=== PATIENT | male | born 1985 | race American Indian/Alaskan Native ===

== ENCOUNTER 2019-04-21 19:54 | Observation (INO) | payer OTHER ==
[~2019-04-21] VITALS: Ht 175.3 cm; Wt 97.6 kg
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
--- NOTE | 2019-04-22 00:34 | NUR ---
ADMISSION ASSESSMENT COMPLETE. PT ALERT AND ORIENTED. RATES PAIN 8/10. PRN MORPHINE ADMINSTERED. PT DENIES NAUSEA. REPORTS SLIGHT SOB. O2 PLACED AT 2LPM VIA NC. HOB 20, ALL PT COULD TOLERATE AT CURRENT PAIN LEVEL. LUNG SOUNDS DIM IN BILATERAL BASES. ABRASIONS TO L BACK COVERED. ABRASION TO L ABD, L EAR, L EYE, AND L FOREHEAD FAMILY CONSUMER SCIENCE TEACHER. PT PROVIDED WITH ICE WATER. ORIENTED TO ROOM AND POC FOR THIS SHIFT. PT'S SISTER WILL STAY THE NIGHT WITH PT. LINEN PACK FOR COUCH PROVIDED. PT DENIES FURTHER NEEDS AT THIS TIME. CALL LIGHT WITHIN REACH.
--- NOTE | 2019-04-22 01:10 | NUR ---
BOLUS FINISHED, MAINTENANCE FLUIDS HUNG. PT RESTING IN BED WITH EYES CLOSED. RESPIRATIONS EVEN, UNLABORED. O2 IN PLACE APPROPRIATELY. SAO2 99%. PT'S SISTER AT BEDSIDE IN CHAIR USING CELL PHONE. NEEDS DENIED AT THIS TIME. CALL LIGHT IN REACH OF PT. PT'S SISTER ENCOURAGED TO USE CALL LIGHT IF NEEDS ARISE WELL.
--- NOTE | 2019-04-22 02:38 | NUR ---
PT UTILIZES CALL LIGHT, STATES HE NEEDS REPOSITIONED. PT PULLED UP IN BED, PROPPED WITH PILLOWS. PT STATES THAT HE IS MORE COMFORTABLE NOW. RATES PAIN 6-7/10. STATES THIS IS TOLERABLE. PT REQUESTS URINAL BE PLACED, LEFT IN PLACE FOR PT TO ATTEMPT TO VOID. PT DENIES OTHER NEEDS AT THIS TIME. PT'S SISTER SLEEPING ON COUCH. CALL LIGHT IN REACH. ICE WATER REFILLED.
--- NOTE | 2019-04-22 06:05 | NUR ---
PT ASSESSMENT COMPLETE. PT RATING PAIN 5/10 TO RIBS AND L COLLARBONE. PRN MORPHINE ADMINISTERED. PT DENIES SOB OR NAUSEA. O2 @ 2LPM SAO2 100%. LUNG SOUNDS DIMINISHED ON RLL, DIM TO ABDSENT IN LLL. MD NOTIFIED OF FINDING. XRAY ORDER CHANGED TO STAT PER MD, IMAGING NOTIFIED. CMS INTACT TO ALL EXTREMITIES. IV FLUIDS INFUSING WNL. PT REPOSITIONED, TOLERATED OK. PT'S SISTER RESTING AT BEDSIDE. ICE WATER REFILLED. CALL LIGHT WITHIN REACH.
--- NOTE | 2019-04-22 06:24 | NUR ---
IMAGING IN ROOM TO TAKE PT TO XRAY. PT ASSITED WITH 1PA TO TRANSFER TO , PAINFUL, TOLERATED OK.
--- NOTE | 2019-04-22 07:42 | NUR ---
REPORT RECEIVED FROM KRISTOFER CONWAY. PT AWAKE IN BED. HOB ELEVATE HIGH HE CAN TOLERATE. 2LNC. TRANSFERRED TO WHEELCHAIR FOR XRAY WITH 1 PA. CLEAR LIQ TRAY AT BEDSIDE.
--- NOTE | 2019-04-22 09:09 | NUR ---
ADMINISTERED MORNING MEDS AND IBP FOR PAIN CONTROL. PT ABLE TO SWALLOW PILL WO DIFF. FAMILY IN ROOM. SISI TRAUMA COORD. IN ROOM. RATES PAIN 6/10 IN RIBS. CMS INTACT. ABD TENDER IN RIGHT LOWER QUAD AND LEFT UPPER QUAD. RR EVEN ADN UNLABORED.
--- NOTE | 2019-04-22 10:21 | NUR ---
PT GIVEN IS AND INSTRUCTED ONUSE. ACTUALLY DID BETTER THAN ANTICIPATED. LUNGS EXTREMELY HARD TO HEAR.
--- NOTE | 2019-04-22 10:28 | NUR ---
PATIENT IN BED RESTING. FRESH WATER GIVEN. CALL LIGHT IN REACH. NO FURTHER NEEDS AT THIS TIME.
--- NOTE | 2019-04-22 11:09 | NUR ---
PT ASSISTED TO RESTROOM. VOIDED IN TOILET AND FLUSHED BUT PT STATED IT WS A GOOD AMT. PLACED HAT FOR NEXT TIME. NOW SITTING UP IN CHAIR WITH CALL LIGHT IN REACH.
--- NOTE | 2019-04-22 13:20 | NUR ---
ADMINISTERED PERCOCET 1 TAB FOR 8\10 PAIN IN THE RIBS. PT DENIES FURTHER CONCERNS.
--- NOTE | 2019-04-22 13:27 | NUR ---
PATIENT UP FROM CHAIR TO BED, SBA. NO VOID AND PATIENT ASKING FOR PAIN MEDS, RN NOTIFIED. SISTER IN ROOM. CALL LIGHT IN REACH. NO FURTHER NEEDS AT THIS TIME.
--- NOTE | 2019-04-22 17:18 | NUR ---
PT RESTING IN BED. DENIES NEEDS ATT. REMAINS ON 2LNC. FAMILY IN ROOM.
--- NOTE | 2019-04-22 17:23 | NUR ---
PT PAIN WELL CONTROLLED WITH TYLENOL AND 1 TAB PERCO. RIBS ON BOTH SIDES VERY PAINFUL. REMAINS ON 2LNC FOR SMALL PNEUMO. FAMILY IN ROOM. USING IS INSTRUCTED. MULTIPLE CUTS AND ABRASIONS WELL CLOSED AND WNL.
--- NOTE | 2019-04-22 18:05 | NUR ---
PT WALKED SEVERAL LAPS IN HALLWAY WITH CHARGE. 2LNC REMAINS ON.
--- NOTE | 2019-04-22 18:38 | NUR ---
PATIENT SITTING ON SIDE OF BED. CALL LIGHT IN REACH. NO FURTHER NEEDS AT THIS TIME.
--- NOTE | 2019-04-22 19:30 | NUR ---
BEDSIDE REPORT RECEIVED FROM OFFGOING RN. PT RESTING IN BED, VISITORS AT BEDSIDE. PT DENIES NEEDS AT THIS TIME. CALL LIGHT IN REACH.
--- NOTE | 2019-04-22 22:49 | NUR ---
PT NOTIFIED BOATWRIGHT THAT PAIN WAS INCREASED. PRN PAIN MEDCIATION ADMINISTERED FOR 8/10 PAIN TO RIBS AND L SHOULDER. PT DENIES NAUSEA OR SOB. O2 IN PLACE VIA NC @ 2LPM. LUNG SOUNDS DIMINISHED IN BILATERAL BASES. SCATTERED ABRASIONS PRESENT. PT DENIES NEEDS AT THIS TIME. POC FOR THIS THIS DISCUSSED WITH PT. UNDERSTANDING STATED. CALL LIGHT IN REACH.
--- NOTE | 2019-04-23 00:50 | NUR ---
PT RESTING IN BED WITH EYES CLOSED, WAKES EASILY WHEN LOUVER MORTISER OPERATOR ENTERS THE ROOM. PT STATES THAT PAIN IS "MUCH BETTER". hE IS ABLE TO RAISE BILATERAL ARMS ABOVE HEAD AND RATES PAIN 6/10. PT DENIES NEEDS AT THIS TIME. CALL LIGHT IN REACH.
--- NOTE | 2019-04-23 03:31 | NUR ---
PT RESTING IN BED WITH EYES CLOSED. RESPIRATIONS EVEN AND UNLABORED. O2 IN PLACE @ 2LPM. PT APPEARS TO BE SLEEPING. DOES NOT WAKE WHILE SUPERVISOR VARNISH IN DOORWAY. CALL LIGHT IN REACH.
--- NOTE | 2019-04-23 05:54 | NUR ---
PT ASSESSMENT COMPLETE. PT RATES PAIN 06/05. PRN PAIN MEDCIATION ADMINISTERED. PT DENIES NAUSEA OR SOB. O2 @ 2LPM. LUNG SOUNDS DIM IN BILATERAL BASES. CMS INTACT TO ALL EXTREMITIES. PT DENIES NEEDS AT THIS TIME. CALL LIGHT IN REACH.
--- NOTE | 2019-04-23 07:32 | NUR ---
PT RESTING IN BED ALERT AND ORIENTED BEDSIDE REPORT.. PT ALERTED TO IMAGING COMING TO TRANSPORT PT TO CXR.
--- NOTE | 2019-04-23 08:02 | NUR ---
PATIENT IN CHAIR WATCHING TV. CALL LIGHT IN REACH. NO FURTHER NEEDS AT THIS TIME.
--- NOTE | 2019-04-23 09:11 | NUR ---
CALLED DR DIAZ OFFICE REGARDING CONSULT TODAY. SPOKE WITH NALLELY. SHE STATED HE WOULD PROBABLY BE OVER AROUND LUNCH. PLACED OFFICIAL CONSULT IN COMPUTER.
--- NOTE | 2019-04-23 09:13 | NUR ---
SHOWER...PT UP IN SHOWER AT THIS TIME, DRESSING FROM LEFT POST SHOULER REMOVED FOR SHOWER.
--- NOTE | 2019-04-23 10:09 | NUR ---
PATIENT DONE WITH SHOWER AND NOW IN CHAIR, SISTER IN ROOM. FRESH WATER GIVEN. CALL LIGHT IN REACH. NO FURTHER NEEDS AT THIS TIME.
--- NOTE | 2019-04-23 10:29 | NUR ---
PT UP AMBULATING IN HALLS AT THIS TIME WITH PORTABLE O2 AT 2L N.C. PER 'S ORDER. PT TOLERATING ACTIVITY VERY WELL INDEPENDENTLY.
--- NOTE | 2019-04-23 10:58 | NUR ---
BED LINENS CHANGED WHILE PT UP WALKING
--- NOTE | 2019-04-23 11:16 | NUR ---
updated on pt current pain, advised to give tylenol and motrin for now then percocet when available is pain not relieved.
--- NOTE | 2019-04-23 13:16 | NUR ---
PT UP AMBULATING IN ROOM, LUNCH ORDERED AFTER PT REPORTED TO NURSES STATION THAT HE HAD NOT HAD LUNCH. PT REPORTS PAIN IS TOLERABLE AT THIS TIME.
--- NOTE | 2019-04-23 17:36 | NUR ---
PT HAS BEEN UP AMBULATING REGULAR, TOELRATING DIET WELL, GIVEN MOTRIN/TYLENOL ONCE AND PERCOCET ONCE THIS SHIFT. HE HAS SHOWERED DRESSINGS CHANGED ON LEFT POSTERIOR SHOULDER. HE HAS BEEN 2L O2 THIS SHIFT PER ORDER. HAS CONSULTED THIS LATE AFTERNOON FOR FX CLAVICAL, HE ORDERED ICE TO SITE AND SLING TO LEFT ARM WHEN UP OUT OF BED.
--- NOTE | 2019-04-23 19:00 | NUR ---
SHIFT REPORT RECEIVED. MD IN ROOM. PATIENT TO STAY THE NIGHT AND DC IN THE MORNING. PATIENT DENIES ANY NEEDS.
[2019-04-23] MEDS ORDERED: OXYCODON-ACETA1 EAC2 PO (19:34)
[2019-04-23] MEDS ORDERED: IBUPROFEN600 MG PO (19:34)
[2019-04-23] MEDS ORDERED: TYLENOL325 MG PO (19:34)
[2019-04-23] MEDS ORDERED: FAMOTIDINE20 MG PO (19:35)
--- NOTE | 2019-04-23 20:20 | NUR ---
ICE PACK PROVIDED.
--- NOTE | 2019-04-23 20:30 | NUR ---
EVEING MEDS PROVIDED PER ORDER. PATIENT REPORTS 7/10 PAIN AND STATES HE IS "DOING OKAY". PRN MOTRIN AND TYLENOL PROVIDED. SWING PLACED ON RIGHT ARM AT 90 DEGREE ANGLE PER ORDERS. ABRASIONS NOTED, DRESSING INTACT ON LEFT SHOULDER AND BACK. LUNG SOUNDS ARE CLEAR, ENCOURAGED IS USE. PATIENT REPORTS POOR APPETITE BUT ACCEPTS OFFER OF SANDWICH BOX FOR A LATE DINNER. NO OTHER NEEDS AT THIS TIME.
--- NOTE | 2019-04-23 22:45 | NUR ---
PATIENT APPEARS TO BE SLEEPING SOUNDLY. WOKE EASILY TO VOICE. DENIES ANY NEEDS. PAIN WELL CONTROLED.
--- NOTE | 2019-04-24 01:00 | NUR ---
PATIENT APPEARS TO BE SLEEPING SOUNDLY. RR 20.
--- NOTE | 2019-04-24 04:15 | NUR ---
PATIENT AAPPEARS TO BE SLEEPING SOUNDLY. WOKE EASILY TO VOICE. DENIES ANY NEEDS. REPORTS PAIN 4/10, DENIES NEED FOR PRN PAIN MEDS. ICE PACK IN PLACE.
--- NOTE | 2019-04-24 05:50 | NUR ---
PATIENT APPEARED TO BE SLEEPING SOUNDLY. WOKE EASILY TO VOICE. RATES PAIN 8/10 AND APPEARS UNCOMFORTABLE. PRN MOTRIN AND PERCOCET PROVIDED. OIL WELL LOGGING ENGINEER PROVIDED FRESH ICE PACKS. NO OTHER NEEDS AT THIS TIME.
--- NOTE | 2019-04-24 06:27 | NUR ---
PATIENT SLEPT MOST OF THE SHIFT. GOOD ORAL INTAKE. PAIN CONTORLLED WITH PRN PERCOSET X1 AND MOTRIN X2. ICE TO EFFECTED AREAS. LEFT ARM IN SLING. ABRAISONS ON BACK COVERED, MINIMAL DRAINAGE. PATIENT INDEPENDENT IN THE ROOM. ENCOURAGE COUGH AND DEEP BREATHING. LUNGS ARE CLEAR, DIMINISHED IN LOWER LEFT.
--- NOTE | 2019-04-24 07:07 | NUR ---
RECIEVED BEDSIDE REPORT FROM KRISTOFER ALEXIS. PT IN BED, AWAKE BUT DROWSY. REPORTS PAIN IS NOW WELL CONTROLLED. HAS ICE PACK TO LEFT CLAVICLE AREA.
--- NOTE | 2019-04-24 09:07 | NUR ---
PT REPORTED 7/10 PAIN TO BILATERAL RIBS AND TO LEFT CLAVICLE. GAVE PERCOCET 1 TAB PO PRN. PT SITTING UP IN RECLINER. EDUCATION GIVEN TO PT REGARDING NEED TO DEEP BREATH AND COUGH, AND TO USE INSENTIVE SPIROMETER. PT VERBALIZED UNDERSTANDING.
--- NOTE | 2019-04-24 11:02 | NUR ---
PATIENT GOT UP TO THE CHAIR FOR BREAKFAST. HE IS BACK IN BED. CALL LIGHT IN REACH. NO FURTER NEEDS AT THIS TIME. WATER REFRESHED.
--- NOTE | 2019-04-24 11:28 | NUR ---
REVIEWED DISCHARGE INSTRUCTIONS AND EDUCATION WITH PT. QUESTIONS ASKED AND ANSWERED. PT VERBALIZED UNDERSTANDING. IV D/C'D WNL.
--- NOTE | 2019-04-24 13:42 | NUR ---
PT RESTING IN BED WITH SWEATPANTS AND GOWN ON. PT HAS ICE PACK ON L CLAVICLE, ALONG WITH SLING ON L ARM. PT QUIET BUT RESPONSIVE-SAID HE UNDERSTOOD HIS POC AND WAS WAITING FOR HIS MOTHER TO TAKE HIM HOME FOLLOWING DC. I EXTENDED A BLESSING, WILL FOLLOW NEEDED
== END 2019-04-24 12:15 | disposition home or self-care (01) ==
LOC: ED 19:54 → MS 19:56
PROVIDERS: ADMIT Surgery
DX: S27.0XXA Traumatic pneumothorax, initial encounter (principal); S42.022A Displaced fracture of shaft of left clavicle, initial encounter for closed fracture; S22.42XA Multiple fractures of ribs, left side, initial encounter for closed fracture; S20.312A Abrasion of left front wall of thorax, initial encounter; F10.129 Alcohol abuse with intoxication, unspecified; R74.8 Abnormal levels of other serum enzymes; Y90.6 Blood alcohol level of 120-199 mg/100 ml; V48.5XXA Car driver injured in noncollision transport accident in traffic accident, initial encounter
CPT/HCPCS: 36415; 70450; 71045; 71046; 71260; 72125; 73030; 74177; 80053; 82150; 82247; 82465; 82550; 83615; 83690; 84100; 84478; 84550; 85025; 86850; 86900; 86901; 90471; 90715; 96372; 96374; 96376; 99285-25; 99406; G0378; G0480; J1644; J2270; J7030; J7120; Q9967